=== PATIENT | female | born 1950 | race Caucasian/White ===

== ENCOUNTER 2018-07-02 17:34 | Emergency (ER) | payer MEDICARE ==
[~2018-07-02] VITALS: Ht 154.9 cm; Wt 92.5 kg
[2018-07-02 19:43] VITALS: BP 141/78
== END 2018-07-02 19:44 | disposition home or self-care (01) ==
LOC: M.ERS 17:34
DX: S52.501A Unspecified fracture of the lower end of right radius, initial encounter for closed fracture (principal); W01.0XXA Fall on same level from slipping, tripping and stumbling without subsequent striking against object, initial encounter; Y93.89 Activity, other specified; Y92.89 Other specified places as the place of occurrence of the external cause; Y99.8 Other external cause status; Z88.8 Allergy status to other drugs, medicaments and biological substances